=== PATIENT | male | born 1995 | race African-American/Black ===

== ENCOUNTER 2020-08-20 14:45 | Emergency (ER) | payer OTHER ==
[~2020-08-20] VITALS: Ht 170.2 cm; Wt 81.8 kg
[2020-08-20 15:09] VITALS: TEMP 97.8
[2020-08-20] MEDS ORDERED: VALTREX1 GM PO (15:48)
[2020-08-20 16:30] VITALS: BP 118/68; PULSE 72
== END 2020-08-20 16:48 | disposition home or self-care (01) ==
LOC: COL.ER 14:45
DX: B00.9 Herpesviral infection, unspecified (principal)